=== PATIENT | female | born 1975 | race Caucasian/White ===

== ENCOUNTER 2019-07-29 07:53 | Inpatient (IN) | payer SELFPAY ==
[2019-07-29] MEDS ORDERED: NS / Oxytocin 40 units/1000ml 1,000 ML IV PRN (08:13)
[2019-07-29] MEDS ORDERED: Ondansetron PF 4 MG/2 ML Vial IVP PRN ×2 (08:13→11:19)
[2019-07-29] MEDS ORDERED: Acetaminophen 500 MG TAB PO PRN (08:13)
[2019-07-29] MEDS ORDERED: Lidocaine 1% (PF) 30 ML VIAL SC PRN (08:13)
[2019-07-29] MEDS ORDERED: Butorphanol Tartrate 1 MG/ML VIAL SLOW IVP PRN (08:13)
[2019-07-29] MEDS ORDERED: Promethazine HCl 25 MG/ML VIAL IM PRN ×2 (08:13→11:19)
[2019-07-29] MEDS ORDERED: Methylergonovine 0.2 MG/ML VIAL IM PRN (08:13)
[2019-07-29] MEDS ORDERED: Misoprostol 200 MCG TAB PR PRN (08:13)
[2019-07-29] MEDS ORDERED: hydrALAZINE 20 MG/ML VIAL SLOW IVP PRN ×2 (08:13→11:56)
[2019-07-29] MEDS ORDERED: HYDROcodone/Acetaminophen 5/325 mg Tablet PO PRN (08:13)
[2019-07-29] MEDS ORDERED: Ibuprofen 800 MG TAB PO PRN (08:13)
[2019-07-29] MEDS ORDERED: Diphenoxylate HCl/Atropine Tablet PO PRN ×2 (08:13)
[2019-07-29] MEDS ORDERED: Carboprost 250 MCG/ML AMP IM PRN (08:13)
[2019-07-29] MEDS ORDERED: NS w/ Oxytocin 10 units 500 ML IV SCH (08:15)
[2019-07-29] MEDS ORDERED: Lactated Ringer's 1,000 ML IV SCH (08:15)
[2019-07-29] MEDS ORDERED: Clindamycin/D5W 900 mg/50 ml Premix Bag ONE (08:17)
[2019-07-29] MEDS ORDERED: Clindamycin/D5W 900 MG in Premix Bag 1 BAG IVPB SCH (08:30)
[2019-07-29 08:34] LABS: Hemoglobin 13.8 g/dL (12.0-16.0); Mean Corpuscular HGB CONC 34.8 g/dL (32.0-36.0); Mean Corpuscular Hemoglobin 33.5 pg (27.0-31.0); Mean Corpuscular Volume 96.1 fL (78.0-98.0); Mean Platelet Volume 7.6 fL (7.4-10.4); Platelet Count 159 thou/uL (130-400); RBC Distribution Width 11.3 % (11.5-14.5); Red Blood Cell (RBC) Count 4.12 mill/uL (4.20-5.40); White Blood Cell (WBC) Count 9.2 thou/uL (4.8-10.8)
[2019-07-29 08:35] VITALS: BMI 30.4
[2019-07-29] MEDS ORDERED: Fentanyl 4 mcg/Bup 0.1% Cadd 100 ML ONE (08:36)
[2019-07-29] MEDS ORDERED: Lidocaine 1% PF 5 ML VIAL ONE (08:59)
[2019-07-29] MEDS ORDERED: Lidocaine 1.5%/Epinephrine 1:200,000 5 ML AMPUL IJ ONE (09:00)
[2019-07-29 09:13] LABS: HBSAg Index 0.17 S/CO (0-0.99); Hep B Surf Ag Non-Reactive S/CO (NonReactive); Syphilis Antibody Nonreactive (Nonreactive); Syphilis Antibody Index 0.05 S/CO (<1.00 Non-Reactive)
[2019-07-29] MEDS ORDERED: diphenhydrAMINE 50 MG/ML VIAL IVP PRN (11:19)
[2019-07-29] MEDS ORDERED: ePHEDrine/0.9% NaCl/PF SYRINGE 50 mg/10 ml SLOW IVP PRN (11:19)
[2019-07-29] MEDS ORDERED: Lactated Ringer's 500 ML IV PRN (11:19)
[2019-07-29] MEDS ORDERED: Naloxone HCl 0.4 mg/ml Vial IVP PRN ×2 (11:19)
[2019-07-29] MEDS ORDERED: Acetaminophen 325 MG TAB PO PRN (11:19)
[2019-07-29] MEDS ORDERED: Communication Order-Pharmacy FS SCH (11:30)
[2019-07-29] MEDS ORDERED: Fentanyl 4 mcg/Bupivacaine 0.1% Cassette 100 ML EPIDURAL SCH (11:30)
[2019-07-29] MEDS: NS / Oxytocin 40 units/1000ml 1,000 ML IV SCH ×2 (11:35→14:05)
[2019-07-29] MEDS ORDERED: Sodium Chloride 0.9% (PF) 10 ML VIAL ONE (11:40)
[2019-07-29] MEDS ORDERED: Lidocaine 2% MPF 10 ML AMP (For Epidural Use) ONE (11:40)
[2019-07-29] MEDS ORDERED: Bupivacaine PF 0.5% 30 ML VIAL ONE (11:40)
--- NOTE | 2019-07-29 11:53 | PDOC.OPDEL ---
OB Operative/Delivery Note Delivery Dr/Surgeon: Toño Pre-Delivery Diagnosis: active labor Procedure/Post Delivery Dx: spontaneous vaginal delivery Weeks gestation: 39 Anesthesia: epidural - Findings A Sex: male - 1 min: 8 - 5 min: 9 - Additional Findings/Plan Placenta delivered: spontaneous Repaired Obstetrical Laceration: episiotomy (second degree, midline to aid with delivery of head and shoulder.) Estimated blood loss: 150 ml qbl Post delivery plan: routine recovery
[2019-07-29] MEDS ORDERED: Bisacodyl 10 MG SUPP PR PRN (11:56)
[2019-07-29] MEDS ORDERED: Preparation H Ointment 28 GM TUBE PR PRN (11:56)
[2019-07-29] MEDS ORDERED: Benzocaine-Menthol 82.5 ML CAN TOP PRN (11:56)
[2019-07-29] MEDS ORDERED: Milk Of Magnesia 30 ML UDCUP PO PRN (11:56)
[2019-07-29] MEDS ORDERED: traMADol HCl 50 MG TAB PO PRN (11:56)
[2019-07-29] MEDS ORDERED: Lanolin Ointment 7 GM TUBE TOP PRN (11:56)
[2019-07-29] MEDS: Ibuprofen 800 MG TAB PO SCH ×2 (12:35→21:26)
[2019-07-29] MEDS: Ferrous Sulfate 325 MG TAB PO SCH (15:56)
[2019-07-29] MEDS: Docusate Calcium (SURFAK) 240 MG CAP PO SCH (21:27)
--- NOTE | 2019-07-30 06:15 | PDOC.PP ---
Post Progress Note Post Day #: PPD1 Subjective: Resting, no complaints. PO intake tolerated: yes Flatus: yes Ambulation: yes Vital Signs (12 hours) Temp Pulse Resp BP Pulse Ox 07/30/19 00:35 97.9 F 86 18 111/63 07/29/19 20:10 98.6 F 61 16 142/75 H 99 Weight Weight 83.007 kg - Physical Examination General: NAD Respiratory: non-labored breathing Psychiatric: normal affect Result Diagrams: 07/29/19 08:22 Additional Labs: Post Labs Blood Type O POSITIVE 07/29/19 08:22 Hep Bs Antigen Non-Reactive S/CO (NonReactive) 07/29/19 08:22 - Assessment/Plan Doing well. Routine PP care.
[2019-07-30] MEDS: Ibuprofen 800 MG TAB PO SCH ×3 (06:27→21:26)
[2019-07-30] MEDS: Prenatal Vitamin 1 TAB PO SCH (10:32)
[2019-07-30] MEDS: Ferrous Sulfate 325 MG TAB PO SCH ×2 (10:32→18:47)
[2019-07-30] MEDS: Docusate Calcium (SURFAK) 240 MG CAP PO SCH ×2 (10:33→21:27)
[2019-07-30] MEDS ORDERED: Adacel (T-DAP) 0.5 ML SYRINGE IM ONE (11:56)
[2019-07-31] MEDS: Ibuprofen 800 MG TAB PO SCH (06:50)
[2019-07-31] MEDS: Docusate Calcium (SURFAK) 240 MG CAP PO SCH (08:24)
[2019-07-31] MEDS: Prenatal Vitamin 1 TAB PO SCH (08:24)
[2019-07-31] MEDS: Ferrous Sulfate 325 MG TAB PO SCH (08:39)
[2019-07-31 08:54] VITALS: BP 129/68; TEMP 97.9
== END 2019-07-31 12:49 | disposition home or self-care (01) | DRG 807 ==
LOC: L&D/OP 07:53 → L&D 08:31 → 3SW 14:42
PROVIDERS: ADMIT Obstetrics & Gynecology; ATTEND Obstetrics & Gynecology
PROC: 10E0XZZ Delivery of Products of Conception, External Approach (ICD-10-PCS; principal; 2019-07-31)
PROC: 0KQM0ZZ Repair Perineum Muscle, Open Approach (ICD-10-PCS; 2019-07-31)
DX: O99.824 Streptococcus B carrier state complicating childbirth (principal); Z37.0 Single live birth; Z3A.39 39 weeks gestation of pregnancy
CPT/HCPCS: 51702; 85027; 86780; 86850; 86900; 86901; 87340; 99285; J0595; J2001; J3490; S0020

== ENCOUNTER 2022-09-26 12:27 | Outpatient (CLI) | payer OTHER | END 2022-09-26 12:28 | disposition home or self-care (01) | LOC: BICMAMMO 12:27 | PROVIDERS: ATTEND Obstetrics & Gynecology | DX: Z12.31 Encounter for screening mammogram for malignant neoplasm of breast (principal); N63.21 Unspecified lump in the left breast, upper outer quadrant; Z98.82 Breast implant status; Z80.3 Family history of malignant neoplasm of breast | CPT/HCPCS: 77063; 77067 ==

== ENCOUNTER 2023-07-01 14:56 | Outpatient (CLI) | payer OTHER | END 2023-07-01 14:57 | disposition home or self-care (01) | LOC: BICMAMMO 14:56 | PROVIDERS: ATTEND Obstetrics & Gynecology | DX: N64.4 Mastodynia (principal) | CPT/HCPCS: 77066; G0279 ==